=== PATIENT | female | born 1980 | race Caucasian/White ===

== ENCOUNTER → 2016-04-22 | Outpatient (CLI) | payer MEDICAID ==
[~2016-04-22] MED LIST: AMOX500C PO; CYCL1TAB29 PO; DEPA500T3 PO; DOXY100C PO; ESCI10TA PO; LISD70 PO; PLAQ200T PO; PROM12.54 PO; TETR500C2 PO; TIZA4TAB PO
--- NOTE | 2016-04-22 14:32 | EKG ---
Date Performed: 04/22/2016 Time Performed: 10:37:00 PTAGE: 36 years EKG: Sinus tachycardia. rSr'(V1) - probable normal variant Borderline ECG PREVIOUS TRACING : 12/15/2012 21.36 Since previous tracing, no significant change noted DOCTOR: Melida Sellers Interpretating Date/Time 04/22/2016 14:24:08
== END ==
LOC: HCAV 10:20
PROVIDERS: ATTEND Psychiatry & Neurology Child & Adolescent Psychiatry
DX: F33.1 Major depressive disorder, recurrent, moderate (principal); F41.1 Generalized anxiety disorder; R00.0 Tachycardia, unspecified
CPT/HCPCS: 93005

== ENCOUNTER 2016-06-03 06:57 | Emergency (ER) | payer MEDICAID ==
[~2016-06-03] VITALS: Ht 165.1 cm; Wt 63.5 kg
[~2016-06-03 06:57] MED LIST changes: -CYCL1TAB29 PO; -DOXY100C PO; -ESCI10TA PO; -PROM12.54 PO; -TIZA4TAB PO
[2016-06-03 07:08] VITALS: BP 126/73; PULSE 125; RESP 16; TEMP 97.7; O2SAT 100
[2016-06-03] MEDS ORDERED: TIZA4TAB PO (07:23)
[2016-06-03] MEDS ORDERED: CYCL1TAB29 PO (07:23)
[2016-06-03] MEDS ORDERED: PROM12.54 PO (07:23)
[2016-06-03] MEDS ORDERED: ESCI10TA PO (07:23)
[2016-06-03] MEDS ORDERED: DOXY100C PO (07:23)
[2016-06-03] MEDS ORDERED: SODIUM CHLOR 0.9% 1000 ML INJ 1,000 ML IV ONE (07:30)
[2016-06-03] MEDS ORDERED: SODIUM CHLORIDE 0.9% FLUSH 5 ML FLUSH IVF PRN (07:30)
--- NOTE | 2016-06-03 07:36 | PD ---
HPI Chief Complaint: OD/ Ingestion Time Seen by Provider: 07:28 Travel History International Travel<30 days: No Contact w/Intl Traveler<30days: No Traveled to known affect area: No History of Present Illness HPI Paramedics brought this patient in after being called by the patient's mother. She admits to taking 12 Flexeril at midnight. She denies suicidal intent. She was trying to help her chronic pain. She has recently weaned herself off chronic narcotics. She was not trying to hurt herself. She denies other overdose. She has history of lupus and chronic pain and used to be on heavy dose narcotics but no longer takes them she says. It's very difficult to understand her, she is altered and speaking gibberish and sometimes is understandable. No injury. Denies headache or chest pain. Symptoms severity is moderate. Duration 7 hours. No alleviating factors. PFSH Past Medical History ADD: Yes Arthritis: Yes (RA) Autoimmune Disease: Yes (LUPUS) Cardiovascular Problems: Yes (MVP) Diminished Hearing: No Fibromyalgia: Yes Integumentary: Yes (FREQUENT INFECTIONS) Immunizations Current: Yes Seizures: Yes Tetanus Vaccination: > 5 Years Influenza Vaccination: No ?: Not Tubal Ligation: Yes Past Surgical History Section: Yes Gynecologic Surgery: Yes (uterine ablation) Tonsillectomy: Yes Social History Alcohol Use: No (THINKS SHE IS ALLERGIC TO) Tobacco Use: Yes (1/2 PPD) Substance Use: No Allergies-Medications (Allergen,Severity, Reaction): Coded Allergies: Tramadol (Unverified Allergy, Severe, seizure, 06/03/16) Acetaminophen (Verified Allergy, Intermediate, HIVES, 06/03/16) Clindamycin (Verified Allergy, Intermediate, HIVES, 06/03/16) *MDRO Multi-Drug Resistant Organism (Unverified Adverse Reaction, Unknown , 06/03/16) MRSA (buttock wound) - 05/2014 Reported Meds & Prescriptions Reported Meds & Active Scripts Active Reported Tizanidine (Tizanidine HCl) 4 Mg Tab 4 Mg PO DAILY Promethazine (Promethazine HCl) 12.5 Mg Tab 12.5 Mg PO Q6H PRN Escitalopram (Escitalopram Oxalate) 10 Mg Tab 10 Mg PO DAILY Doxycycline Hyclate 100 Mg Cap 100 Mg PO DAILY Flexeril (Cyclobenzaprine HCl) 10 Mg Tab 10 Mg PO BID Depakote ER (Divalproex Sodium) 500 Mg Cass 500 Mg PO BID Plaquenil (Hydroxychloroquine Sulfate) 200 Mg Tab 200 Mg PO DAILY Take with food Review of Systems ROS Limitations: Clinical Condition, Altered Mental Status, Poor Historian Physical Exam Narrative GENERAL: Well-nourished, well-developed patient in no apparent distress. SKIN: Warm and dry. Numerous picked at appearing Lesions over her face. HEAD: Atraumatic. Normocephalic. EYES: Pupils equal and round. No scleral icterus. No injection or drainage. ENT: No nasal bleeding or discharge. Mucous membranes pink and moist. NECK: Trachea midline. No JVD. CARDIOVASCULAR: Regular rate and rhythm. No murmur appreciated. RESPIRATORY: No accessory muscle use. Clear to auscultation. Breath sounds equal bilaterally. GASTROINTESTINAL: Abdomen soft, non-tender, nondistended. Hepatic and splenic margins not palpable. MUSCULOSKELETAL: No obvious deformities. No clubbing. No cyanosis. No edema. NEUROLOGICAL: Awake but drowsy. No obvious cranial nerve deficits. Motor grossly within normal limits. Rapid for the most part nonsensical speech although she sometimes says things that are understandable. Does follow most commands. PSYCHIATRIC: Drowsy and altered mood and affect; insight and judgment poor. Data Data Last Documented VS Vital Signs Date Time Temp Pulse Resp B/P Pulse Ox O2 Delivery O2 Flow Rate FiO2 06/03/16 10:54 99 16 118/79 97 Room Air 06/03/16 07:08 97.7 Orders Complete Blood Count With Diff (06/03/16 07:29) Comprehensive Metabolic Panel (06/03/16 07:29) Iv Access Insert/Monitor (06/03/16 07:29) Ecg Monitoring (06/03/16 07:29) Oximetry (06/03/16 07:29) Sodium Chloride 0.9% Flush (Ns Flush) (06/03/16 07:30) Drug Screen, Random Urine (06/03/16 07:29) Alcohol (Ethanol) (06/03/16 07:29) Salicylates (Aspirin) (06/03/16 07:29) Tylenol (Acetaminophen) (06/03/16 07:29) Sodium Chlor 0.9% 1000 Ml Inj (Ns 1000 M (06/03/16 07:30) Cath For Specimen (06/03/16 07:29) Ed Urine Pregnancytest Poc (06/03/16 07:29) Electrocardiogram (06/03/16 07:06) Labs Laboratory Tests Test 06/03/16 06/03/16 07:57 08:05 White Blood Count 5.2 TH/MM3 Red Blood Count 4.40 MIL/MM3 Hemoglobin 13.1 GM/DL Hematocrit 38.9 % Mean Corpuscular Volume 88.2 FL Mean Corpuscular Hemoglobin 29.6 PG Mean Corpuscular Hemoglobin 33.6 % Concent Red Cell Distribution Width 12.5 % Platelet Count 211 TH/MM3 Mean Platelet Volume 9.3 FL Neutrophils (%) (Auto) 50.3 % Lymphocytes (%) (Auto) 37.1 % Monocytes (%) (Auto) 11.3 % Eosinophils (%) (Auto) 0.9 % Basophils (%) (Auto) 0.4 % Neutrophils # (Auto) 2.7 TH/MM3 Lymphocytes # (Auto) 1.9 TH/MM3 Monocytes # (Auto) 0.6 TH/MM3 Eosinophils # (Auto) 0.0 TH/MM3 Basophils # (Auto) 0.0 TH/MM3 CBC Comment DIFF FINAL Differential Comment Sodium Level 145 MEQ/L Potassium Level 4.2 MEQ/L Chloride Level 109 MEQ/L Carbon Dioxide Level 28.9 MEQ/L Anion Gap 7 MEQ/L Blood Urea Nitrogen 14 MG/DL Creatinine 0.53 MG/DL Estimat Glomerular Filtration 131 ML/MIN Rate Random Glucose 102 MG/DL Calcium Level 8.7 MG/DL Total Bilirubin 0.3 MG/DL Aspartate Amino Transf 12 U/L (AST/SGOT) Alanine Aminotransferase 17 U/L (ALT/SGPT) Alkaline Phosphatase 84 U/L Total Protein 7.3 GM/DL Albumin 3.8 GM/DL Salicylates Level 3.6 MG/DL Acetaminophen Level LESS THAN 2.0 MCG/ML Ethyl Alcohol Level LESS THAN 3 MG/DL Urine Opiates Screen NEG Urine Barbiturates Screen NEG Urine Amphetamines Screen POS Urine Benzodiazepines Screen NEG Urine Cocaine Screen NEG Urine Cannabinoids Screen NEG MDM Medical Decision Making Medical Screen Exam Complete: Yes Emergency Medical Condition: Yes Medical Record Reviewed: Yes Differential Diagnosis Overdose, chronic pain, medication side effect Narrative Course I have reviewed the patient's electronic medical record. I saw this patient March 2016 for hidradenitis suppurativa issues IV placed I gave her 1 L normal saline IV I reviewed her EKG which shows sinus tachycardia without ectopy Extended cardiac monitoring reveals sinus rhythm without ectopy CBC is normal Metabolic profile is normal LFTs are normal Alcohol is negative Tylenol is negative Aspirin is very low Toxicology screen is positive only for amphetamines and she takes vyvance Urine is negative Was control was contacted and they recommended a second EKG 2 hours later to make sure there was no QRS widening This was done and the QRS is very narrow They recommended monitoring until she is improved in terms of mental/neurologic status. I observed the patient for over 4 hours. She has steadily improved. She now has slow and readily understandable speech. She feels better and would like to go home. Discussed compliance with medicine instructions. I feel she is stable for outpatient follow-up this time. I advised her to discuss this with family physician. I don't think she needs emergent psychiatric evaluation. She seems sincere about trying to do with her chronic pain but didn't use a constructive method and she knows better at this time Diagnosis Primary Impression: Overuse of medication Additional Impression: Toxic encephalopathy Additional Instructions: The patient was advised to follow up with their physician and return if they worsen. Med/Other Pt SpecificInfo: Other Disposition: 01 DISCHARGE HOME Condition: Stable Prieto Nagel MD Jun 03, 2016 07:36
[2016-06-03 08:12] VITALS: O2SAT 98
[2016-06-03 08:24] LABS: BARBITURATES, URINE NEG (NEG)
[2016-06-03 08:25] LABS: AMPHETAMINE, URINE POS (NEG); COCAINE, URINE NEG (NEG)
[2016-06-03 08:25] LABS: AUTOMATED NEUTROPHIL # 2.7 TH/MM3 (1.8-7.7); BASOPHIL % 0.4 % (0.0-2.0); EOSINOPHIL % 0.9 % (0.0-4.0); HEMATOCRIT 38.9 % (35.0-46.0); HEMO FLAGS DIFF FINAL; LYMPH % 37.1 % (9.0-44.0); LYMPHOCYTE # 1.9 TH/MM3 (1.0-4.8); MEAN CELL VOLUME 88.2 FL (80.0-100.0); MEAN CORPUSCULAR HEMOGLOBIN 29.6 PG (27.0-34.0); MEAN CORPUSCULAR HGB CONC 33.6 % (32.0-36.0); MONO % 11.3 % (0.0-8.0); NEUT % 50.3 % (16.0-70.0); PLATELET COUNT 211 TH/MM3 (150-450); RED CELL DISTRIBUTION WIDTH 12.5 % (11.6-17.2); WHITE BLOOD COUNT 5.2 TH/MM3 (4.0-11.0)
[2016-06-03 08:26] LABS: CHLORIDE 109 MEQ/L (98-107); POTASSIUM 4.2 MEQ/L (3.5-5.1); SODIUM (NA) 145 MEQ/L (136-145)
[2016-06-03 08:30] LABS: ANION GAP 7 MEQ/L (5-15); BICARBONATE 28.9 MEQ/L (21.0-32.0); BLOOD UREA NITROGEN 14 MG/DL (7-18)
[2016-06-03 08:33] LABS: ALT (GPT) 17 U/L (10-53); AST (GOT) 12 U/L (15-37); GLOMERULAR FILTRATION RATE 131 ML/MIN (>89)
[2016-06-03 08:34] LABS: TOTAL BILIRUBIN ADULT 0.3 MG/DL (0.2-1.0)
[2016-06-03 08:36] LABS: ALKALINE PHOSPHATASE 84 U/L (45-117)
[2016-06-03 09:19] LABS: ACETAMINOPHEN LESS THAN 2.0 MCG/ML (10.0-30.0)
[2016-06-03 10:23] VITALS: BP 114/77; PULSE 116; RESP 16; O2SAT 100
[2016-06-03 10:54] VITALS: BP 118/79; PULSE 99; RESP 16; O2SAT 97
--- NOTE | 2016-06-03 17:30 | EKG ---
Date Performed: 06/03/2016 Time Performed: 07:06:46 PTAGE: 36 years EKG: Sinus tachycardia Right ventricular hypertrophy Septal ST-T changes are probably due to madelyn tricular hypertrophy Abnormal ECG PREVIOUS TRACING : 04/22/2016 10.37 T-wave changes since prior tracing, but otherwise largely u nchanged. DOCTOR: Marvin Morin Interpretating Date/Time 06/03/2016 17:28:27
--- NOTE | 2016-06-04 17:16 | EKG ---
Date Performed: 06/03/2016 Time Performed: 10:03:26 PTAGE: 36 years EKG: Sinus tachycardia Right ventricular conduction disturbance Otherwise within normal limits C ompared to prior tracing no significant change Abnormal ECG PREVIOUS TRACING : 06/03/2016 07.06 DOCTOR: Cheng Nagy Interpretating Date/Time 06/04/2016 17:15:13
== END 2016-06-03 12:07 | disposition home or self-care (01) ==
LOC: PHED 06:57
DX: T50.901A Poisoning by unspecified drugs, medicaments and biological substances, accidental (unintentional), initial encounter (principal); G92 Toxic encephalopathy; T48.1X5A Adverse effect of skeletal muscle relaxants [neuromuscular blocking agents], initial encounter; G89.29 Other chronic pain; M32.9 Systemic lupus erythematosus, unspecified; M79.7 Fibromyalgia
CPT/HCPCS: 80053; 80307; 80320; 84703; 85025; 93005; 96360; 96361; 99284; J7030; 80329; G0480

== ENCOUNTER 2017-08-29 08:56 | Emergency (ER) | payer MEDICAID ==
[~2017-08-29] VITALS: Ht 165.1 cm; Wt 52.0 kg
[~2017-08-29 08:56] MED LIST changes: -AMOX500C PO; +CYCL10TA PO; +DOXY100C PO; +ESCI10TA PO; -LISD70 PO; +PROM12.54 PO; -TETR500C2 PO; +TIZA4TAB PO
[2017-08-29 09:04] VITALS: BP 104/70; PULSE 104; RESP 16; TEMP 98.4; O2SAT 100
[2017-08-29 09:14] VITALS: BP 104/70; PULSE 104; RESP 16; O2SAT 100
[2017-08-29] MEDS ORDERED: SODIUM CHLORIDE 0.9% FLUSH 10 ML FLUSH IVF PRN (09:15)
--- NOTE | 2017-08-29 09:28 | PD ---
HPI . Decreased level of consciousness Chief Complaint: OD/ Ingestion Time Seen by Provider: 09:03 Travel History International Travel<30 days: No Contact w/Intl Traveler<30days: No Traveled to known affect area: No History of Present Illness HPI This patient is brought to us via [facility] after a reported overdose of Soma. She reportedly took 4 Soma last night. She was found unusually sleepy by her mother this morning. She denies any coingestions. She denies suicidal ideation. Symptoms are moderate. No known modifying factors. PFSH Past Medical History ADD: Yes Arthritis: Yes (RA) Autoimmune Disease: Yes (LUPUS) Cardiovascular Problems: Yes (MVP) Diminished Hearing: No Fibromyalgia: Yes Integumentary: Yes (FREQUENT INFECTIONS) Immunizations Current: Yes Seizures: Yes ?: Not Tubal Ligation: Yes Past Surgical History Section: Yes Gynecologic Surgery: Yes (uterine ablation) Tonsillectomy: Yes Social History Alcohol Use: No (THINKS SHE IS ALLERGIC TO) Tobacco Use: Yes (1/2 PPD) Substance Use: No Allergies-Medications (Allergen,Severity, Reaction): Coded Allergies: tramadol (Unverified Allergy, Severe, seizure, 11/30/16) acetaminophen (Unverified Allergy, Intermediate, HIVES, 11/30/16) clindamycin (Unverified Allergy, Intermediate, HIVES, 11/30/16) *MDRO Multi-Drug Resistant Organism (Unverified Adverse Reaction, Unknown , 06/03/16) MRSA (buttock wound) - 05/2014 Reported Meds & Prescriptions Reported Meds & Active Scripts Active Reported Tizanidine (Tizanidine HCl) 4 Mg Tab 4 Mg PO DAILY Promethazine (Promethazine HCl) 12.5 Mg Tab 12.5 Mg PO Q6H PRN Escitalopram (Escitalopram Oxalate) 10 Mg Tab 10 Mg PO DAILY Doxycycline Hyclate 100 Mg Cap 100 Mg PO DAILY Flexeril (Cyclobenzaprine HCl) 10 Mg Tab 10 Mg PO BID Depakote ER (Divalproex Sodium) 500 Mg Cass 500 Mg PO BID Plaquenil (Hydroxychloroquine Sulfate) 200 Mg Tab 200 Mg PO DAILY Take with food Review of Systems Except as stated in HPI: all other systems reviewed are Neg Physical Exam Narrative GENERAL: Sleepy. Slurred speech. She does answer direct questions. SKIN: Warm and dry. HEAD: Normocephalic/atraumatic. EYES: Pupils are equal. Extraocular movements are intact. ENT: Mucous membranes are moist. NECK: Normal range of motion. CARDIOVASCULAR: Regular rate and rhythm. RESPIRATORY: Nonlabored respirations. MUSCULOSKELETAL: Atraumatic. NEUROLOGICAL: Nonfocal. PSYCHIATRIC: Unable to assess. Data Data Last Documented VS Vital Signs Date Time Temp Pulse Resp B/P (MAP) Pulse Ox O2 Delivery O2 Flow Rate FiO2 08/29/17 10:58 16 08/29/17 10:53 98 Room Air 08/29/17 10:15 95 105/74 (84) 08/29/17 09:04 98.4 Orders Orders Electrocardiogram (08/29/17 09:04) Basic Metabolic Panel (Bmp) (08/29/17 09:04) Complete Blood Count With Diff (08/29/17 09:04) Iv Access Insert/Monitor (08/29/17 09:04) Cath For Specimen (08/29/17 09:04) Ecg Monitoring (08/29/17 09:04) Oximetry (08/29/17 09:04) Sodium Chloride 0.9% Flush (Ns Flush) (08/29/17 09:15) Call Poison Control (08/29/17 09:04) Drug Screen, Random Urine (08/29/17 09:04) Alcohol (Ethanol) (08/29/17 09:04) Salicylates (Aspirin) (08/29/17 09:04) Tylenol (Acetaminophen) (08/29/17 09:04) Valproic Acid (Depakene) (08/29/17 09:11) Ketorolac Inj (Toradol Inj) (08/29/17 10:00) Labs Laboratory Tests Test 08/29/17 09:18 08/29/17 09:40 White Blood Count 4.7 TH/MM3 Red Blood Count 4.15 MIL/MM3 Hemoglobin 12.6 GM/DL Hematocrit 37.7 % Mean Corpuscular Volume 90.7 FL Mean Corpuscular Hemoglobin 30.3 PG Mean Corpuscular Hemoglobin Concent 33.4 % Red Cell Distribution Width 13.2 % Platelet Count 341 TH/MM3 Mean Platelet Volume 8.9 FL Neutrophils (%) (Auto) 38.8 % Lymphocytes (%) (Auto) 48.3 % Monocytes (%) (Auto) 11.6 % Eosinophils (%) (Auto) 0.7 % Basophils (%) (Auto) 0.6 % Neutrophils # (Auto) 1.8 TH/MM3 Lymphocytes # (Auto) 2.4 TH/MM3 Monocytes # (Auto) 0.5 TH/MM3 Eosinophils # (Auto) 0.0 TH/MM3 Basophils # (Auto) 0.0 TH/MM3 CBC Comment DIFF FINAL Differential Comment Blood Urea Nitrogen 15 MG/DL Creatinine 0.57 MG/DL Random Glucose 96 MG/DL Calcium Level 8.7 MG/DL Sodium Level 141 MEQ/L Potassium Level 3.8 MEQ/L Chloride Level 105 MEQ/L Carbon Dioxide Level 28.0 MEQ/L Anion Gap 8 MEQ/L Estimat Glomerular Filtration Rate 119 ML/MIN Salicylates Level LESS THAN 1.7 MG/DL Acetaminophen Level LESS THAN 2.0 MCG/ML Valproic Acid (Depakene) Level LESS THAN 3 MCG/ML Ethyl Alcohol Level LESS THAN 3 MG/DL Urine Opiates Screen NEG Urine Barbiturates Screen NEG Urine Amphetamines Screen POS Urine Benzodiazepines Screen NEG Urine Cocaine Screen NEG Urine Cannabinoids Screen NEG MDM Medical Decision Making Medical Screen Exam Complete: Yes Emergency Medical Condition: Yes Interpretation(s) EKG shows a sinus rhythm with a rate of 107. No ST segment elevation or depression. Differential Diagnosis Differential diagnosis of altered mental status includes but is not limited to infection, electrolyte abnormality, neurological event, intoxication Narrative Course This patient is brought to us by [facility] because of altered mental status. She reportedly took 4 Soma before bed last night. She will be monitored here and observed for improvement in her LOC. Routine labs have been ordered as well as a urine drug screen, alcohol level, aspirin level, Tylenol level and Depakote level. 10 AM This patient is awake and alert and calling out frequently for assistance. CBC & BMP Diagram 08/29/17 09:18 Calcium Level 8.7 Urine drug screen is positive for amphetamines. Tylenol, aspirin and Depakote levels are negative. Alcohol level is also negative. This patient has been awake and alert for a while now. She is stable for discharge. Critical Care Narrative Aggregate critical care time was 30 minutes. Time to perform other separately billable procedures was not included in the critical care time. My time did not include minutes spent treating any other patients simultaneously or on activities that did not directly contribute to the patient's treatment. The services I provided to this patient were to treat and/or prevent clinically significant deterioration due to overdose with altered level of consciousness I provided critical care services requiring my management, as noted below: Chart data review, documentation time, medication orders and management, vital sign assessments/reviewing monitor data, ordering and reviewing lab tests, ordering and interpreting/reviewing x-rays and diagnostic studies, care of the patient and discussion of the patient with the admitting physicians Diagnosis Primary Impression: Overuse of medication Patient Instructions: Adult Overdose (ED), General Instructions Disposition: 01 DISCHARGE HOME Condition: Stable Julieth Calvin MD August 29, 2017 09:28
[2017-08-29 09:37] LABS: AUTOMATED NEUTROPHIL # 1.8 TH/MM3 (1.8-7.7); BASOPHIL % 0.6 % (0.0-2.0); EOSINOPHIL % 0.7 % (0.0-4.0); HEMATOCRIT 37.7 % (35.0-46.0); HEMOGLOBIN 12.6 GM/DL (11.6-15.3); LYMPH % 48.3 % (9.0-44.0); LYMPHOCYTE # 2.4 TH/MM3 (1.0-4.8); MEAN CELL VOLUME 90.7 FL (80.0-100.0); MEAN CORPUSCULAR HEMOGLOBIN 30.3 PG (27.0-34.0); MEAN CORPUSCULAR HGB CONC 33.4 % (32.0-36.0); MEAN PLATELET VOLUME 8.9 FL (7.0-11.0); MONO % 11.6 % (0.0-8.0); MONOCYTE # 0.5 TH/MM3 (0-0.9); NEUT % 38.8 % (16.0-70.0); PLATELET COUNT 341 TH/MM3 (150-450); RED BLOOD COUNT 4.15 MIL/MM3 (4.00-5.30); RED CELL DISTRIBUTION WIDTH 13.2 % (11.6-17.2); WHITE BLOOD COUNT 4.7 TH/MM3 (4.0-11.0)
[2017-08-29 10:00] LABS: CALCIUM 8.7 MG/DL (8.5-10.1)
[2017-08-29] MEDS ORDERED: KETOROLAC TROMETHAMINE 30 MG/ML (IVP) VIAL IV PUSH ONE (10:00)
[2017-08-29 10:01] LABS: GLUCOSE,RANDOM 96 MG/DL (74-106)
[2017-08-29 10:03] LABS: CHLORIDE 105 MEQ/L (98-107); SODIUM (NA) 141 MEQ/L (136-145)
[2017-08-29 10:04] LABS: CREATININE 0.57 MG/DL (0.50-1.00); GLOMERULAR FILTRATION RATE 119 ML/MIN (>89)
[2017-08-29 10:10] LABS: BLOOD UREA NITROGEN 15 MG/DL (7-18)
[2017-08-29 10:15] VITALS: BP 105/74; PULSE 95; RESP 16; O2SAT 98
[2017-08-29 10:58] VITALS: RESP 16
[2017-08-29 11:40] LABS: ACETAMINOPHEN LESS THAN 2.0 MCG/ML (10.0-30.0)
--- NOTE | 2017-08-29 18:21 | EKG ---
Date Performed: 08/29/2017 Time Performed: 09:13:22 PTAGE: 37 years EKG: SINUS TACHYCARDIA POSSIBLE RIGHT VENTRICULAR CONDUCTION DELAY NONSPECIFIC T-WAVE ABNORMALIT Y ABNORMAL RHYTHM ECG PREVIOUS TRACING : 06/03/2016 10.03 Since the previous tracing, no significant change noted DOCTOR: Melida Sellers Interpretating Date/Time 08/29/2017 18:20:12
== END 2017-08-29 12:30 | disposition home or self-care (01) ==
LOC: PHED 08:56
DX: T42.8X1A Poisoning by antiparkinsonism drugs and other central muscle-tone depressants, accidental (unintentional), initial encounter (principal); R40.4 Transient alteration of awareness; R47.81 Slurred speech; R94.31 Abnormal electrocardiogram [ECG] [EKG]; M32.9 Systemic lupus erythematosus, unspecified; M79.7 Fibromyalgia; F17.200 Nicotine dependence, unspecified, uncomplicated
CPT/HCPCS: 80048; 80164; 80307; 85025; 93005; 96374; 99291; J1885; P9612